=== PATIENT | male | born 1980 | race Caucasian/White ===

== ENCOUNTER 2023-02-06 05:02 | Emergency (ER) | payer BC, OTHER ==
[2023-02-06 05:09] VITALS: BP 144/88; PULSE 102; RESP 19; TEMP 98.6; BMI 29.9
[2023-02-06] MEDS ORDERED: ALBUTEROL SO4 2.5/IPRATROPIUM 0.5 INH SOL 3 ML VIAL.NEB. NEB ONE ×2 (05:36→05:46)
[2023-02-06] MEDS ORDERED: DEXAMETHASONE SOD PHOSPHATE 10 MG/1 ML VIAL IM ONE (05:36)
[2023-02-06] MEDS ORDERED: DEXAMETHASONE SOD PHOSPHATE 10 MG/1 ML VIAL ONE (05:46)
== END 2023-02-06 07:03 | disposition home or self-care (01) ==
LOC: JER 05:02
PROC: 3E023GC Introduction of Other Therapeutic Substance into Muscle, Percutaneous Approach (ICD-10-PCS; principal; 2023-02-06)
PROC: 3E0F7GC Introduction of Other Therapeutic Substance into Respiratory Tract, Via Natural or Artificial Opening (ICD-10-PCS; 2023-02-06)
DX: R05.9 Cough, unspecified (principal); R09.89 Other specified symptoms and signs involving the circulatory and respiratory systems; Z20.822 Contact with and (suspected) exposure to COVID-19
CPT/HCPCS: 0241U-QW; 87651; 99284-25; J1100